=== PATIENT | male | born 1990 | race Caucasian/White ===

== ENCOUNTER → 2020-06-15 | Outpatient (REF) | payer OTHER ==
[2020-06-15 13:33] LABS: HEMATOCRIT 44.9 % (42.0-52.0); MEAN CORPUSCULAR HEMOGLOBIN 30.7 pg (27.0-33.0); MEAN CORPUSCULAR HGB CONC 33.4 g/dl (32.0-36.5); MEAN CORPUSCULAR VOLUME 91.8 fl (80.0-96.0); PLATELET COUNT, AUTOMATED 223 10^3/uL (150-450); RED BLOOD COUNT 4.89 10^6/uL (4.30-6.10); WHITE BLOOD COUNT 6.5 10^3/uL (4.0-10.0)
[2020-06-15 14:09] LABS: ALBUMIN 4.6 GM/DL (3.2-5.2); ALT/SGPT 23 U/L (12-78); BILIRUBIN,TOTAL 0.6 MG/DL (0.2-1.0); BLOOD UREA NITROGEN 12 MG/DL (7-18); CALCIUM LEVEL 9.5 MG/DL (8.5-10.1); CARBON DIOXIDE LEVEL 29 MEQ/L (21-32); CHLORIDE LEVEL 106 MEQ/L (98-107); CHOLESTEROL LEVEL 184 MG/DL (<200); CHOLESTEROL RISK RATIO 2.746 (<5); CREATININE FOR GFR 0.93 MG/DL (0.70-1.30); GLOMERULAR FILTRATION RATE > 60.0 (>60); GLUCOSE, FASTING 91 MG/DL (70-100); HDL CHOLESTEROL 67 MG/DL (>40); LDL CHOLESTEROL 103 MG/DL (<100); NON-HDL-C 117 MG/DL; SODIUM LEVEL 139 MEQ/L (136-145); TOTAL PROTEIN 7.6 GM/DL (6.4-8.2); TRIGLYCERIDES LEVEL 71 MG/DL (<150)
== END ==
LOC: M SFHCADAM 09:43
PROVIDERS: ATTEND Physician Assistant
DX: Z00.00 Encounter for general adult medical examination without abnormal findings (principal)

== ENCOUNTER → 2020-11-25 | Outpatient (REF) | payer OTHER ==
[2020-11-26 15:11] LABS: GC DNA AMPLIFICATION NEGATIVE (NEGATIVE)
== END ==
LOC: M SFHCADAM 12:33
PROVIDERS: ATTEND Family Medicine
DX: R30.0 Dysuria (principal); R31.9 Hematuria, unspecified

== ENCOUNTER → 2020-12-16 | Outpatient (REF) | payer OTHER | LOC: M SMT 17:11 | PROVIDERS: ATTEND Urology | DX: R31.29 Other microscopic hematuria (principal) ==

== ENCOUNTER → 2020-12-29 | Outpatient (CLI) | payer OTHER ==
[~2020-12-29] MED LIST: ISOVUE-370 76% 100ML VIAL ONE
--- NOTE | 2020-12-29 11:58 | REP ---
INDICATION: MICRO HEMATURIA. COMPARISON: None. TECHNIQUE: Contrast dose: 100 ML of Isovue [address] technique: Helical scanning is acquired and 3 mm axial images are acquired. Precontrast as well as dual phase post-contrast CT study of the abdomen and pelvis is acquired. CT urogram. FINDINGS: Preliminary digital director drug radiograph is unremarkable. Normal bowel gas pattern. The lung bases are clear on axial CT images. The liver and the spleen are normal in size homogeneous in texture on pre and postcontrast trapped imaging. No abnormality is noted in the gallbladder or the pancreas. Normal adrenal glands are seen bilaterally. No retroperitoneal mass or adenopathy is observed. There is a tiny calcification in the central renal collecting system of the right mid kidney on the noncontrast study consistent with a tiny intrarenal calculus. Axial image number 56 of 156 in series 2 of today's study. No other evidence of intrarenal nephrolithiasis is seen. No hydronephrosis is noted. The kidneys enhance symmetrically. There are morphologically intact on postcontrast images. Delayed cyst acquisition shows no mass lesion. There is no evidence of bladder mass or bladder calculus. Prostate and seminal vesicles are unremarkable. Small and large bowel loops are normal in appearance in the abdomen. A normal appendix is visible in the right lower quadrant. No abdominal wall defect is seen. No bony destructive lesion is appreciated. There are bilateral pars defects at L5 and there is a grade 1-2, 9 mm, L5-S1 spondylolisthesis. IMPRESSION: Probable single tiny intrarenal calculus right mid kidney. Otherwise negative CT study of the urinary tract. Bilateral pars defects are noted at L5 with a grade 1-2, 9 mm, L5-S1 spondylolisthesis. <Electronically signed by Harman Khan > 12/29/20 1415
== END ==
LOC: M PLAIMG 09:49
PROVIDERS: ATTEND Urology
DX: R31.29 Other microscopic hematuria (principal)
CPT/HCPCS: 74178; Q9967

== ENCOUNTER → 2021-05-31 | Outpatient (CLI) | payer OTHER, SELFPAY | LOC: M RAD 13:57 | PROVIDERS: ATTEND Urology | DX: I86.1 Scrotal varices (principal) ==